=== PATIENT | female | born 1985 | race Caucasian/White ===

== ENCOUNTER 2020-08-16 11:41 | Emergency (ER) | payer OTHER ==
[~2020-08-16] VITALS: Ht 165.1 cm; Wt 68.0 kg
[~2020-08-16 11:41] MED LIST: CELEXA 10 MG TA10 M1 PO; FLEXERIL PO; NORCO 5-325 TA1 EACH PO; YASMIN 28 TABL1 EACH
[2020-08-16 12:03] LABS: URINE BILIRUBIN NEGATIVE (Negative); URINE BLOOD TRACE (Negative); URINE CLARITY CLEAR; URINE COLOR YELLOW; URINE GLUCOSE-RANDOM NEGATIVE (Negative); URINE KETONES NEGATIVE (Negative); URINE LEUKOCYTES-REFLEX NEGATIVE (Negative); URINE NITRITE-REFLEX NEGATIVE (Negative); URINE PROTEIN NEGATIVE (Negative); URINE UROBILINOGEN 0.2 E.U./dl (0.2-1.0)
[2020-08-16 13:00] LABS: ABSOLUTE BASOPHILS 0.1 thou/uL (0.0-0.2); ABSOLUTE EOSINOPHILS 0.1 thou/uL (0.0-0.7); ABSOLUTE LYMPHOCYTES 2.1 thou/uL (0.8-5.3); ABSOLUTE MONOCYTES 0.7 thou/uL (0.0-1.2); ABSOLUTE NEUTROPHILS 6.2 thou/uL (1.6-8.1); BASOPHILS 0.9 %; EOSINOPHILS 0.8 %; HEMATOCRIT 41.6 % (37.0-47.0); HEMOGLOBIN 13.9 gm/dL (12.0-15.0); LYMPHOCYTES 22.6 %; MCH 29.6 pg (26.0-34.0); MCHC 33.4 g/dL (28.0-37.0); MCV 88.7 fL (80.0-100.0); MONOCYTES 7.3 %; MPV 7.2 fl. (7.2-11.1); NUCLEATED RBCS 0 /100WBC; PLATELET COUNT* 327 thou/uL (150-400); POLYS 68.4 %; RBC 4.68 mil/uL (4.20-5.00); RDW-CV 13.9 % (10.5-14.5); WBC 9.1 thou/uL (4.0-11.0)
[2020-08-16 13:14] LABS: CALCIUM 9.2 mg/dL (8.5-10.1); POTASSIUM 3.7 mmol/L (3.5-5.1)
[2020-08-16 13:18] LABS: ALBUMIN 3.9 g/dL (3.4-5.0); TOTAL BILIRUBIN 0.4 mg/dL (<0.1-1.0); TOTAL PROTEIN 7.2 g/dL (6.4-8.2)
[2020-08-16 14:21] VITALS: BP 131/89
--- NOTE | 2020-08-16 16:33 | EKG ---
[place] [address] ELECTROCARDIOGRAM REPORT Name: AMAURY MAGALLON Room: [facility]#: [id number] Admission: 08/16/20 Attend Phys: Discharge: 08/16/20 Date of : 81 Date of Service: 08/16/20 1150 Report #: [id number] THIS REPORT FOR: //name// [facility] ED Test Date: 2020-08-16 Test Time: 11:50:39 Pat Name: AMAURY MAGALLON Department: Room: Gender: Change [employer]st: : 1985 Requested By: Hermann Alston Order Number: [id number] MD: Bret Sweeney Measurements Intervals Silt Rate: 77 P: 58 ND: 123 QRS: 67 QRSD: 84 T: 33 QT: 377 QTc: 427 Interpretive Statements Sinus rhythm Baseline wander in lead(s) V6 No previous ECG available for comparison Electronically Signed On 08-16-2020 16:33:12 [facility] [employer] by Bret Sweeney [email or web address] <ELECTRONICALLY SIGNED> By: Bret Sweeney MD, [facility] 08/16/20 1633 1150 1150 Bret Sweeney MD, [facility] /EPI
== END 2020-08-16 14:21 | disposition home or self-care (01) ==
LOC: M.ERS 11:41
PROVIDERS: Family Medicine
DX: S00.83XA Contusion of other part of head, initial encounter (principal); R55 Syncope and collapse; G43.909 Migraine, unspecified, not intractable, without status migrainosus; Z88.8 Allergy status to other drugs, medicaments and biological substances; Z87.442 Personal history of urinary calculi; X58.XXXA Exposure to other specified factors, initial encounter; Y93.89 Activity, other specified; Y92.89 Other specified places as the place of occurrence of the external cause; Y99.8 Other external cause status